=== PATIENT | female | born 1990 | race African-American/Black ===

== ENCOUNTER 2022-07-19 12:43 | Inpatient (IN) ==
[2022-07-19] MEDS ORDERED: ONDANSETRON 4 MG/2 ML VIAL ONE (13:01)
[2022-07-19 13:18] LABS: Basophils % 0.2 % (0.0-0.8); Hematocrit 34.3 VOL% (35.7-47.0); Immature Granulocytes % 0.4 %; Immature Granulocytes Absolute 0.02 #; Lymphocytes # 0.8 10*3/uL (1.4-4.0); Lymphocytes % 16.7 % (21.3-54.2); Mean Corpuscular HGB Conc 32.1 GM/DL (32-36); Mean Corpuscular Volume 93.7 FL (87-102); Mean Platelet Volume 11.1 FL (9.6-12.0); Monocytes # 0.3 10*3/uL (0.11-0.8); Monocytes % 6.6 % (1.7-12.7); Neutrophils % 76.1 % (38.7-73.9); Platelet Count 165 T/CUMM (130-400); Red Blood Count 3.66 MC/CUMM (3.8-5.5); Red Cell Distribution Width 16.1 % (9.3-17.3); White Blood Count 4.6 T/CUMM (4-12)
[2022-07-19] MEDS ORDERED: ONDANSETRON 4 MG/2 ML VIAL IV STA (13:25)
[2022-07-19] MEDS ORDERED: fentaNYL 100 MCG/2 ML VIAL IV STA (13:26)
[2022-07-19 13:39] LABS: Albumin 3.7 G/DL (3.4-5.0); Bilirubin,Total 3.5 MG/DL (0.20-1.00); Calcium 9.4 MG/DL (8.5-10.1); Osmolality,Calculated 264.4 MOS/KG (273-304); Potassium 3.1 MMOL/L (3.5-5.1); Total Protein 8.2 G/DL (6.4-8.2)
[2022-07-19] MEDS ORDERED: HYDROmorphone 1 MG/1 ML SYRINGE IV STA ×2 (14:19→15:50)
[2022-07-19] MEDS ORDERED: HYDROmorphone 1 MG/1 ML SYRINGE ONE (14:20)
[2022-07-19 14:41] LABS: Mucus,Urine Many /LPF (Occasional); RBC,Urine 33 /HPF (0-4); Squamous Epithelial Cell,Urine Occasional /HPF (0-10); Urine Appearance Clear (Clear)
[2022-07-19 14:42] LABS: Bilirubin,Urine Large mg/dL (Negative); Blood, Urine Moderate mg/dL (Negative); Glucose,Urine (UA) 100 mg/dL (Negative); Ketones,Urine >=160 mg/dL (Negative); Nitrite,Urine Negative (Negative); Protein,Urine 100 mg/dL (Negative); Urine Color Orange (Yellow); Urine Specific Gravity 1.025 (1.001-1.035)
[2022-07-19 14:45] LABS: Barbiturates Screen,Urine Negative (Negative); Benzodiazepines Screen,Urine Negative (Negative); Cannabinoid Screen,Urine Negative (Negative); Opiate Screen,Urine Positive (Negative); Phencyclidine Screen,Urine Negative (Negative)
[2022-07-19] MEDS ORDERED: hydrALAZINE 20 MG/1 ML VIAL IV PRN (14:46)
[2022-07-19] MEDS ORDERED: GLUCAGON 1 MG VIAL IM PRN (14:46)
[2022-07-19] MEDS ORDERED: DEXTROSE 10% 250 ML BAG IV PRN (14:46)
[2022-07-19] MEDS ORDERED: SODIUM CHLORIDE 0.9% 1,000 ML IV ONE (14:50)
[2022-07-19] MEDS: SODIUM CHLORIDE 0.9% 1,000 ML IV SCH (16:00)
[2022-07-19 18:03] LABS: Hepatitis B Core IgM Quant 0.13 Index; Hepatitis B Surface Ag Quant < 0.10 Index; Hepatitis B Surface Ag Result Non-Reactive (NonReactive); Hepatitis C Virus Ab Quant 0.05 Index; Hepatitis C Virus Ab Result Non-Reactive (NonReactive)
[2022-07-19] MEDS: HEPARIN 5,000 UNIT/1 ML VIAL SUBCUT SCH (18:40)
[2022-07-19] MEDS: MORPHINE 2 MG/1 ML SYRINGE IV PRN (19:28)
[2022-07-19] MEDS: HYDROmorphone 1 MG/1 ML SYRINGE IV PRN ×2 (21:37→23:55)
[2022-07-19] MEDS: ONDANSETRON 4 MG/2 ML VIAL IV PRN (21:42)
[2022-07-19] MEDS: amLODIPine 5 MG TABLET PO SCH (22:37)
[2022-07-20] MEDS: HEPARIN 5,000 UNIT/1 ML VIAL SUBCUT SCH ×4 (00:01→22:39)
[2022-07-20] MEDS: SODIUM CHLORIDE 0.9% 1,000 ML IV SCH ×2 (01:12→09:26)
[2022-07-20] MEDS: HYDROmorphone 1 MG/1 ML SYRINGE IV PRN ×6 (02:52→23:27)
[2022-07-20] MEDS: MORPHINE 2 MG/1 ML SYRINGE IV PRN ×2 (04:28→12:17)
[2022-07-20] MEDS: ONDANSETRON 4 MG/2 ML VIAL IV PRN ×3 (04:33→15:30)
[2022-07-20 05:07] LABS: Basophils % 0.5 % (0.0-0.8); Eosinophils # 0.1 10*3/uL (0.0-0.87); Eosinophils % 1.4 % (0.00-10.9); Hematocrit 32.1 VOL% (35.7-47.0); Hemoglobin 10.1 GM/DL (12.0-16.0); Immature Granulocytes % 1.4 %; Immature Granulocytes Absolute 0.05 #; Lymphocytes # 0.8 10*3/uL (1.4-4.0); Mean Corpuscular HGB Conc 31.5 GM/DL (32-36); Mean Corpuscular Volume 95.8 FL (87-102); Mean Platelet Volume 11.3 FL (9.6-12.0); Monocytes # 0.3 10*3/uL (0.11-0.8); Monocytes % 9.2 % (1.7-12.7); Neutrophils % 65.5 % (38.7-73.9); Platelet Count 148 T/CUMM (130-400); Red Blood Count 3.35 MC/CUMM (3.8-5.5); Red Cell Distribution Width 15.9 % (9.3-17.3); White Blood Count 3.7 T/CUMM (4-12)
[2022-07-20 06:01] LABS: Bilirubin,Direct 1.47 MG/DL (0.0-0.20); Bilirubin,Indirect 1.1 MG/DL (0.0-1.0); Bilirubin,Total 2.6 MG/DL (0.20-1.00); Calcium 8.8 MG/DL (8.5-10.1); Osmolality,Calculated 265.1 MOS/KG (273-304); Thyroid Stimulating Hormone 1.49 uIU/ml (0.358-3.74); Total Protein 6.9 G/DL (6.4-8.2)
[2022-07-20] MEDS ORDERED: MAGNESIUM SULF RIDER 2 GM/50 ML PREMIX IV PRN (07:09)
[2022-07-20] MEDS ORDERED: MAGNESIUM SULF RIDER 4 GM/100 ML PREMIX IV PRN (07:09)
[2022-07-20] MEDS: amLODIPine 5 MG TABLET PO SCH (09:26)
[2022-07-20] MEDS: LACTATED RINGERS 1,000 ML IV SCH ×2 (15:31→19:52)
[2022-07-21] MEDS: LACTATED RINGERS 1,000 ML IV SCH ×5 (00:10→21:14)
[2022-07-21] MEDS: HYDROmorphone 1 MG/1 ML SYRINGE IV PRN ×6 (04:20→23:05)
[2022-07-21 05:50] LABS: Basophils % 0.6 % (0.0-0.8); Eosinophils % 1.3 % (0.00-10.9); Hemoglobin 11.1 GM/DL (12.0-16.0); Immature Granulocytes Absolute 0.03 #; Lymphocytes % 30.8 % (21.3-54.2); Mean Corpuscular HGB Conc 31.7 GM/DL (32-36); Mean Corpuscular Volume 94.9 FL (87-102); Mean Platelet Volume 10.8 FL (9.6-12.0); Monocytes # 0.3 10*3/uL (0.11-0.8); Neutrophils % 55.3 % (38.7-73.9); Platelet Count 174 T/CUMM (130-400); Red Blood Count 3.69 MC/CUMM (3.8-5.5); Red Cell Distribution Width 15.9 % (9.3-17.3); White Blood Count 3.1 T/CUMM (4-12)
[2022-07-21 06:20] LABS: Albumin 3.2 G/DL (3.4-5.0); Bilirubin,Total 1.5 MG/DL (0.20-1.00); Calcium 9.7 MG/DL (8.5-10.1); Osmolality,Calculated 262.2 MOS/KG (273-304); Potassium 3.1 MMOL/L (3.5-5.1); Total Protein 7.7 G/DL (6.4-8.2)
[2022-07-21 06:25] LABS: Risk Ratio 1.71; VLDL Cholesterol 14.6 MG/DL
[2022-07-21] MEDS: HEPARIN 5,000 UNIT/1 ML VIAL SUBCUT SCH ×3 (06:46→23:08)
[2022-07-21] MEDS: POTASSIUM CHLORIDE RIDER 10 MEQ/100 ML PREMIX IV PRN ×6 (06:46→23:00)
[2022-07-21] MEDS: amLODIPine 5 MG TABLET PO SCH (08:57)
[2022-07-21] MEDS: ONDANSETRON 4 MG/2 ML VIAL IV PRN (19:59)
[2022-07-22] MEDS: POTASSIUM CHLORIDE RIDER 10 MEQ/100 ML PREMIX IV PRN (00:19)
[2022-07-22] MEDS: HYDROmorphone 1 MG/1 ML SYRINGE IV PRN ×2 (02:32→06:02)
[2022-07-22] MEDS: LACTATED RINGERS 1,000 ML IV SCH (03:57)
[2022-07-22] MEDS: HEPARIN 5,000 UNIT/1 ML VIAL SUBCUT SCH (06:04)
[2022-07-22 06:06] LABS: Calcium 9.7 MG/DL (8.5-10.1); Osmolality,Calculated 264.1 MOS/KG (273-304); Potassium 3.6 MMOL/L (3.5-5.1)
[2022-07-22] MEDS ORDERED: oxyCODONE/ACETAMINOPHEN 5-325 MG TABLET PO PRN (08:04)
[2022-07-22] MEDS ORDERED: PROMETHAZINE 25 MG TABLET PO PRN (08:07)
[2022-07-22] MEDS: amLODIPine 5 MG TABLET PO SCH (09:27)
[2022-07-22 12:01] VITALS: BP 147/97
== END 2022-07-22 13:26 | disposition home or self-care (01) | DRG 282 ==
LOC: N.ED 12:43 → N.EDINP 14:46 → SUATTDRO 14:46 → N.3E 18:55
PROVIDERS: ADMIT Internal Medicine; ATTEND Internal Medicine